=== PATIENT | female | born 1955 | race Caucasian/White ===

== ENCOUNTER 2017-04-28 17:27 | Inpatient (IN) | payer OTHER, MEDICARE ==
[~2017-04-28] VITALS: Ht 157.5 cm; Wt 55.8 kg
[2017-04-28] MEDS ORDERED: IOHEXOL 350 MG/ML 10 ML VIAL (for RAD DIAG) IVCONTRAST ONE (17:28)
[2017-04-28 17:29] VITALS: O2SAT 100
[2017-04-28] MEDS ORDERED: ETOMIDATE 20 MG/10 ML VIAL ONE (17:30)
[2017-04-28] MEDS ORDERED: ROCURONIUM INJ 50 MG/5 ML VIAL ONE (17:31)
[2017-04-28] MEDS ORDERED: ceFAZolin 2 GM PREMIX 50 ML ONE (17:44)
[2017-04-28] MEDS ORDERED: DIPHTH/TETANUS/ACEL PERTUSSIS (BOOSTER) 0.5 ML VIAL/PFS IM ONE (17:45)
[2017-04-28] MEDS ORDERED: ONDANSETRON HCL 4 MG/2 ML VIAL ONE (17:48)
[2017-04-28] MEDS ORDERED: MORPHINE SULFATE 8 MG/ML INJ ONE (17:48)
[2017-04-28] MEDS ORDERED: PROPOFOL 1000 MG/100 ML INJ 100 ML ONE (17:49)
[2017-04-28 17:55] VITALS: O2SAT 100
[2017-04-28 17:59] LABS: I-STAT POTASSIUM 3.7 MMOL/L (3.5-4.9)
[2017-04-28 18:00] LABS: AUTOMATED NEUTROPHIL # 3.7 TH/MM3 (1.8-7.7); BASOPHIL # 0.1 TH/MM3 (0-0.2); BASOPHIL % 0.8 % (0.0-2.0); EOSINOPHIL # 0.1 TH/MM3 (0-0.4); EOSINOPHIL % 1.2 % (0.0-4.0); HEMATOCRIT 45.6 % (35.0-46.0); HEMO FLAGS DIFF FINAL; LYMPH % 32.4 % (9.0-44.0); LYMPHOCYTE # 2.1 TH/MM3 (1.0-4.8); MEAN CELL VOLUME 97.9 FL (80.0-100.0); MEAN CORPUSCULAR HEMOGLOBIN 33.9 PG (27.0-34.0); MEAN CORPUSCULAR HGB CONC 34.6 % (32.0-36.0); MONO % 7.7 % (0.0-8.0); NEUT % 57.9 % (16.0-70.0); PLATELET COUNT 302 TH/MM3 (150-450); RED BLOOD COUNT 4.66 MIL/MM3 (4.00-5.30); RED CELL DISTRIBUTION WIDTH 12.4 % (11.6-17.2); WHITE BLOOD COUNT 6.4 TH/MM3 (4.0-11.0)
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
--- NOTE | 2017-04-28 18:09 | RADRPT ---
EXAM DATE/TIME: 04/28/2017 17:30 [facility] COMPARISON: No previous studies available for comparison. INDICATIONS : Post intubation and central line placement. MEDICAL HISTORY : Unresponsive. SURGICAL HISTORY : Unresponsive. ENCOUNTER: Subsequent ACUITY: 1 day PAIN SCORE: Non-responsive. LOCATION: Bilateral chest FINDINGS: No support lines or tubes are demonstrated. Lungs are clear. Cardiome style contours are within vita l limits. The bony thorax is grossly intact. A visualized portions of the abdomen demonstrate no dipak s free air. Fixation hardware in the lower lumbar spine. Osseous structures are grossly intact. CONCLUSION: 1. No support tubes or lines are demonstrated. 2. Negative portable chest. Gregorio Navarrete MD on April 28, 2017 at 18:05 Board Certified Radiologist. This report was verified electronically.
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
[2017-04-28 18:18] LABS: APTT (PATIENT) 25.7 SEC (24.3-30.1)
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
[2017-04-28 18:36] VITALS: O2SAT 100
[2017-04-28] MEDS ORDERED: fentaNYL DRIP 250 ML IV PRN (19:00)
[2017-04-28] MEDS ORDERED: MISCELLANEOUS NURSING INFORMATION XX SCH (19:00)
[2017-04-28] MEDS ORDERED: SODIUM CHLORIDE 0.9% FLUSH 10 ML FLUSH IV FLUSH PRN ×2 (19:00→20:30)
[2017-04-28] MEDS ORDERED: CHLORHEXIDINE GLUCONATE 2 % 1 PACK (2 CLOTHS) TOP PRN (19:00)
[2017-04-28] MEDS ORDERED: ONDANSETRON HCL 4 MG/2 ML VIAL IV PUSH PRN ×2 (19:00→20:30)
[2017-04-28] MEDS ORDERED: ENALAPRILAT 1.25 MG/ML VIAL IV PUSH PRN (19:00)
[2017-04-28] MEDS: fentaNYL 2,500 MCG/NS 250 ML IV PRN (19:10)
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
[2017-04-28 20:00] VITALS: PULSE 58
[2017-04-28] MEDS: SODIUM CHLOR 0.9% 1000 ML INJ 1,000 ML IV SCH (20:00)
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
[2017-04-28] MEDS ORDERED: POTASSIUM PHOSPHATE MONOBASIC 500 MG TAB PO/TUBE PRN (20:30)
[2017-04-28] MEDS ORDERED: LORazepam 2 MG TAB PO PRN (20:30)
[2017-04-28] MEDS ORDERED: MAGNESIUM SULFATE INJ 2 GM in SODIUM CHLORIDE 0.9% INJ 96 ML IV PRN (20:30)
[2017-04-28] MEDS ORDERED: MAGNESIUM SULFATE INJ 4 GM in SODIUM CHLORIDE 0.9% INJ 92 ML IV PRN (20:30)
[2017-04-28] MEDS ORDERED: POTASSIUM CHLOR 20 MEQ PREMIX 100 ML IV PRN ×2 (20:30)
[2017-04-28] MEDS ORDERED: POTASSIUM PHOSPHATE INJ 30 MMOL in SODIUM CHLOR 0.9% 250 ML INJ 250 ML IV PRN (20:30)
[2017-04-28] MEDS ORDERED: POTASSIUM CHLOR 40 MEQ PREMIX 100 ML IV PRN ×2 (20:30)
[2017-04-28] MEDS ORDERED: LORazepam 1 MG TAB PO PRN (20:30)
[2017-04-28] MEDS ORDERED: SODIUM PHOSPHATE INJ 30 MMOL in SODIUM CHLOR 0.9% 250 ML INJ 240 ML IV PRN (20:30)
[2017-04-28] MEDS ORDERED: MAGNESIUM OXIDE 400 MG TAB PO PRN (20:30)
[2017-04-28] MEDS ORDERED: PROPOFOL 1000 MG/100 ML INJ 100 ML IV PRN (20:30)
[2017-04-28] MEDS ORDERED: FLUMAZENIL 0.5 MG/5 ML VIAL IV PUSH PRN (20:30)
[2017-04-28] MEDS ORDERED: POTASSIUM CHLORIDE 25 MEQ EFFERVESCENT TAB PO PRN (20:30)
[2017-04-28] MEDS ORDERED: POTASSIUM PHOSPHATE MONOBASIC 500 MG TAB PO PRN (20:30)
[2017-04-28 20:43] VITALS: O2SAT 100
[2017-04-28] MEDS ORDERED: MIDAZOLAM HCL 2 MG/2 ML VIAL IV PUSH ONE (20:45)
[2017-04-28] MEDS ORDERED: MIDAZOLAM 100 MG/100 ML INJ 100 ML IV PRN (20:45)
[2017-04-28] MEDS: PANTOPRAZOLE SODIUM 40 MG VIAL IVP SCH (20:52)
[2017-04-28] MEDS: SODIUM CHLORIDE 0.9% FLUSH 10 ML FLUSH IV FLUSH SCH (20:54)
[2017-04-28] MEDS: THIAMINE INJ 100 MG in SODIUM CHLORIDE 0.9% INJ 100 ML IV SCH (21:00)
[2017-04-28] MEDS: MULTIVITAMIN INJ 10 ML, FOLIC ACID INJ 1 MG in SODIUM CHLORID 0.9% 500 ML INJ 500 ML IV SCH (21:00)
[2017-04-28] MEDS ORDERED: MULTIVITAMIN INJ 10 ML, THIAMINE INJ 100 MG, FOLIC ACID INJ 1 MG in SODIUM CHLORID 0.9%... IV SCH (21:00)
[2017-04-28] MEDS: BACITRACIN TOP OINT 15 GM TUBE TOP SCH (21:00)
[2017-04-28 21:16] LABS: MAGNESIUM 2.2 MG/DL (1.5-2.5)
[2017-04-28 22:00] VITALS: PULSE 59
[2017-04-29] VITALS (14 sets, daily range): BP systolic 81–156; BP diastolic 45–88; PULSE 53–114; RESP 12–27; TEMP 96.8–99.5; O2SAT 92–100
[2017-04-29] MEDS: CHLORHEXIDINE GLUCONATE 2 % 1 PACK (2 CLOTHS) TOP SCH (04:00)
[2017-04-29 05:26] LABS: BLOOD GAS BASE EXCESS -5.4 mmol/L (-2-2); BLOOD GAS CARBOXYHEMOGLOBIN 0.7 % (0-4); BLOOD GAS HCO3 19 mmol/L (22-26); BLOOD GAS O2 HGB SATURATION 98 % (90-100); BLOOD GAS OXYGEN CONTENT 16.4 Vol % (12.0-20.0); BLOOD GAS PCO2 35 mmHg (38-42); BLOOD GAS PO2 239 mmHg (61-120); BLOOD GAS TOTAL HGB 11.5 G/DL (12.0-16.0); TEMP CORR TO 98.6
[2017-04-29 05:27] LABS: CRITICAL VALUE NO; DRAW SITE RT RADIAL; FIO2 50 %; NUMBER OF ARTERIAL PUNCTURES 1; OXYGEN DEVICE VENTILATOR; STAT NO; ULNAR PULSE PRESENT; VENT SETTINGS PRVC16/450/1.0/+8
[2017-04-29] MEDS: SODIUM CHLOR 0.9% 1000 ML INJ 1,000 ML IV SCH ×2 (06:00→21:44)
[2017-04-29 06:34] LABS: AUTOMATED NEUTROPHIL # 3.8 TH/MM3 (1.8-7.7); BASOPHIL % 0.4 % (0.0-2.0); EOSINOPHIL # 0.1 TH/MM3 (0-0.4); EOSINOPHIL % 1.1 % (0.0-4.0); HEMATOCRIT 33.4 % (35.0-46.0); HEMO FLAGS DIFF FINAL; LYMPH % 28.9 % (9.0-44.0); LYMPHOCYTE # 1.8 TH/MM3 (1.0-4.8); MEAN CELL VOLUME 98.7 FL (80.0-100.0); MEAN CORPUSCULAR HEMOGLOBIN 33.1 PG (27.0-34.0); MEAN CORPUSCULAR HGB CONC 33.5 % (32.0-36.0); MONO % 10.4 % (0.0-8.0); NEUT % 59.2 % (16.0-70.0); PLATELET COUNT 187 TH/MM3 (150-450); RED BLOOD COUNT 3.39 MIL/MM3 (4.00-5.30); RED CELL DISTRIBUTION WIDTH 12.6 % (11.6-17.2); WHITE BLOOD COUNT 6.3 TH/MM3 (4.0-11.0)
[2017-04-29 07:22] LABS: BICARBONATE 19.5 MEQ/L (21.0-32.0); CALCIUM-PROTEIN CORRECTED 8.5 MG/DL (8.5-10.1); POTASSIUM 3.1 MEQ/L (3.5-5.1); TOTAL BILIRUBIN ADULT 0.2 MG/DL (0.2-1.0)
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
[2017-04-29] MEDS ORDERED: CHLORHEXIDINE 0.12% (ORAL KIT) 15 ML CUP MT SCH (08:00)
[2017-04-29] MEDS: SODIUM CHLORIDE 0.9% FLUSH 10 ML FLUSH IV FLUSH SCH ×2 (08:10→21:00)
[2017-04-29] MEDS: BACITRACIN TOP OINT 15 GM TUBE TOP SCH ×2 (08:10→21:00)
[2017-04-29] MEDS: fentaNYL 2,500 MCG/NS 250 ML IV PRN (09:10)
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
[2017-04-29] MEDS: chlordiazePOXIDE 25 MG CAP PO SCH ×2 (12:47→17:37)
[2017-04-29] MEDS ORDERED: LACTULOSE SYRUP 20 GM/30 ML CUP PO PRN (13:30)
[2017-04-29] MEDS ORDERED: ACETAMINOPHEN 650 MG/20.3 ML UDC PO PRN (13:30)
[2017-04-29] MEDS: MULTIVITAMIN INJ 10 ML, FOLIC ACID INJ 1 MG in SODIUM CHLORID 0.9% 500 ML INJ 500 ML IV SCH (21:43)
[2017-04-29] MEDS: DOCUSATE SODIUM 50 MG/SENNA 8.6 MG TAB PO SCH (21:43)
[2017-04-29] MEDS: PANTOPRAZOLE SODIUM 40 MG VIAL IVP SCH (21:44)
[2017-04-29] MEDS: THIAMINE INJ 100 MG in SODIUM CHLORIDE 0.9% INJ 100 ML IV SCH (23:07)
[2017-04-30] MEDS: oxyCODONE/ACETAMINOPHEN 5 MG/325 MG TAB PO PRN ×2 (00:05→06:15)
[2017-04-30 00:07] VITALS: BP 190/79; PULSE 86; RESP 19; TEMP 98.2; O2SAT 98
[2017-04-30 00:55] VITALS: BP 187/76
[2017-04-30] MEDS: SODIUM CHLOR 0.9% 1000 ML INJ 1,000 ML IV SCH (01:16)
[2017-04-30] MEDS: CHLORHEXIDINE GLUCONATE 2 % 1 PACK (2 CLOTHS) TOP SCH (01:16)
[2017-04-30 02:13] VITALS: BP 180/77
[2017-04-30 04:00] VITALS: BP 173/74; PULSE 82; RESP 18; TEMP 98.2; O2SAT 95
[2017-04-30 08:00] VITALS: BP 203/84; PULSE 83; RESP 18; TEMP 98.3; O2SAT 99
[2017-04-30] MEDS: BACITRACIN TOP OINT 15 GM TUBE TOP SCH (08:38)
[2017-04-30] MEDS: SODIUM CHLORIDE 0.9% FLUSH 10 ML FLUSH IV FLUSH SCH (08:38)
[2017-04-30 08:42] VITALS: O2SAT 96
[2017-04-30] MEDS: DOCUSATE SODIUM 50 MG/SENNA 8.6 MG TAB PO SCH (08:46)
[2017-04-30] MEDS: chlordiazePOXIDE 25 MG CAP PO SCH (08:46)
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
== END 2017-04-30 10:29 | disposition left against medical advice (07) | DRG 917 ==
LOC: NEPI 17:27 → NEDA 18:56 → EDBD 18:56 → N03A 19:01 → N05B 04-29 15:31
PROVIDERS: ADMIT Surgery; ATTEND Surgery
PROC: 5A1945Z Respiratory Ventilation, 24-96 Consecutive Hours (ICD-10-PCS; principal; 2017-04-28)
PROC: 0BH17EZ Insertion of Endotracheal Airway into Trachea, Via Natural or Artificial Opening (ICD-10-PCS; 2017-04-28)
PROC: 05H633Z Insertion of Infusion Device into Left Subclavian Vein, Percutaneous Approach (ICD-10-PCS; 2017-04-28)
DX: T51.0X1A Toxic effect of ethanol, accidental (unintentional), initial encounter (principal); J96.00 Acute respiratory failure, unspecified whether with hypoxia or hypercapnia; G92 Toxic encephalopathy; S00.81XA Abrasion of other part of head, initial encounter; E86.0 Dehydration; I10 Essential (primary) hypertension; R40.2431 Glasgow coma scale score 3-8, in the field [EMT or ambulance]; F10.229 Alcohol dependence with intoxication, unspecified; W07.XXXA Fall from chair, initial encounter; Y90.8 Blood alcohol level of 240 mg/100 ml or more
CPT/HCPCS: 36600; 70450; 70486; 71010; 71260; 72125; 72170; 74177; 80053; 80307; 82435; 82565; 82805; 82947; 83735; 84100; 84132; 84295; 84520; 85025; 85610; 85730; 86850; 86900; 86901; 90715; 94002; 94003; 94150; C9113; J0690; J2250; J2270; J2405; J3010; J3411; J7030; J7040; L0150; L0172; Q9967